=== PATIENT | male | born 1955 | race Caucasian/White ===

== ENCOUNTER 2016-12-16 07:08 | Day surgery (SDC) | payer OTHER ==
[~2016-12-16] VITALS: Ht 175.3 cm; Wt 79.0 kg
[2016-12-16] VITALS (12 sets, daily range): BP systolic 96–165; BP diastolic 65–83; PULSE 72–100; RESP 16–27; Ht 175.3 cm; Wt 79.0 kg
[~2016-12-16 07:08] MED LIST: AMLO2.5T2 PO; ATOR20TA38 PO
[2016-12-16] MEDS ORDERED: POLYMYXIN/BACITRACIN 1L IRRIG IRR ONE (08:00)
[2016-12-16] MEDS ORDERED: SOD CHLORIDE 0.9% 1,000 ML IV SCH (08:00)
[2016-12-16] MEDS ORDERED: CEFAZOLIN 1 GM/50 ML (PMX) 50 ML IVPB ONE ×2 (08:00→09:00)
[2016-12-16] MEDS ORDERED: HEPARIN 1000 UNITS/ML 10 ML INJ ONE (08:33)
[2016-12-16] MEDS ORDERED: DIPHENHYDRAMINE 50 MG INJ ONE (09:00)
[2016-12-16] MEDS ORDERED: FENTAnyl 50 MCG/ML VIAL ONE (09:00)
[2016-12-16] MEDS ORDERED: LIDOCAINE 1%/EPI 1:200,000 10 ML VIAL INJ SCH (09:00)
[2016-12-16] MEDS ORDERED: MIDAZOLAM 1 MG/ML 2 ML INJ ONE (09:00)
--- NOTE | 2016-12-16 10:42 | RADRPT ---
PROCEDURE: FLUOROSCOPIC AND ULTRASONOGRAPHIC-GUIDED PLACEMENT OF RIGHT CHEST PORT. CLINICAL INDICATION: History of lymphoma. Venous access for chemotherapy. TECHNIQUE: INTRAPROCEDURE MEDICATIONS: PB antibiotic solution 40 cc applied topically. 1 gram Ancef intravenous ly, intra-op. IV Versed and Fentanyl per protocol. Informed consent was obtained. The procedure, risks, benefits, complications and alternatives were explained to the patient. Risks including bleeding, infection, and pneumothorax were explained. The patient understood and was willing to proceed. A procedural pause was performed. The patient's name, date of , and procedure to be performed w ere verified. The central line was inserted with all elements of maximal sterile barrier technique. All of the fol lowing were used: head covering, facial mask, sterile gown, sterile gloves, a large sterile sheet, h and hygiene, and 2% chlorhexidine for cutaneous antisepsis. The right neck and anterior/superior chest wall were prepped and draped in usual sterile fashion. Limited sonography of the right neck was then performed. Noted is a patent right internal jugular ve in. Following the local injection of 1% lidocaine, the right internal jugular vein was punctured under s onographic guidance with a 20-gauge needle through which a 0.018 inch floppy tip guidewire was advan brady into the superior vena cava with fluoroscopic guidance. The tract was dilated to 5 [place] and the wire was then replaced with a 0.035 in Amplatz guidewire. Serial dilatation was then performed and a 7 [place]alan peel away sheath was introduced. A site just inferior to the clavicle in the superior anterior right chest wall was localized. One pe rcent lidocaine was used as local anesthesia. A transverse 2.5 cm incision was made utilizing a 15 b lade scalpel. Utilizing blunt dissection a subcutaneous pocket was created inferior to the incision. The cavity was flushed with approximately 40 cc of PB antibiotic solution. The catheter was tunneled underneath the skin from the newly created pocket to the puncture site in the neck. The central line catheter was pulled through the tract. The catheter was then advanced thr ough the sheath until the tip was positioned in the right atrium. The peel-away sheath was removed. The catheter was flushed and clamped. The 6.6 [place]alan catheter was then connected to the Angiodynamics power port. The port was then placed into the pocket. Prior to closing the instrument and sponge count was verified and was correct. The subcutaneous tissue was closed with 3-0 Vicryl interrupted suture. The skin at the site of the pock et and in the neck was closed with 4-0 Vicryl suture in a running subcuticular technique. The port w as flushed with 1500 units of heparin in 1.5 cc utilizing a Lara needle. The needle was removed. A dressing was applied. The patient tolerated procedure well. COMPARISON: None. FINDINGS: Ultrasound images were recorded and stored in the patient's medical record. Final radiographic images demonstrate the tip of the catheter in the upper right atrium. A total of 0.2 minutes of fluoroscopy time was used. The ultrasound images demonstrate the needle entering th e internal jugular vein. IMPRESSION: 1. Successful ultrasonographic and fluoroscopic guided placement of right chest power port. RPTAT: QQ .Severino Francis MD, Date Time Electronically viewed and signed by .Severino Francis MD, MD on 12/16/2016 10:42 .R/
--- NOTE | 2016-12-16 10:48 | RADRPT ---
PROCEDURE: Ultrasound guidance for placement of needle in right internal jugular vein. CLINICAL INDICATION: Venous access. TECHNIQUE: Prior to the procedure, informed consent was obtained. Risks including bleeding, infection, and pneu mothorax were explained to the patient. The patient understood and was willing to proceed. A procedu ral pause was performed. The patient's name, date of , and procedure to be performed were verif ied. The central line was inserted with all elements of maximal sterile barrier technique. All of th e following were used: head covering, facial mask, sterile gown, sterile gloves, a large sterile she et, hand hygiene, and 2% chlorhexidine for cutaneous antisepsis. The right neck and anterior/super ior chest wall was prepped and draped in usual sterile fashion. Limited sonography of the right neck was then performed. Noted is a patent right internal jugular ve in. Ultrasound images were recorded and stored in the patient's medical record. Following the local injection of Xylocaine, the right internal jugular vein was punctured under sono graphic guidance with a 20-gauge needle through which a 0.018 inch floppy tip guidewire was advanced into the superior vena cava. The patient tolerated the procedure well. The remainder of the proce dure was performed and dictated under separate cover. COMPARISON: None. FINDINGS: The ultrasound images demonstrate a patent right internal jugular vein. The subsequent images demon strate the needle entering the right internal jugular vein. IMPRESSION: 1. Ultrasound guidance for a needle placement in right internal jugular vein. RPTAT: QQ .Seveirno Francis MD, Date Time Electronically viewed and signed by .Severino Francis MD, MD on 12/16/2016 10:48 .R/
== END 2016-12-16 12:45 | disposition home or self-care (01) ==
LOC: GIL 07:08 → SDS 07:08
PROVIDERS: ATTEND Internal Medicine Hematology & Oncology
DX: C82.35 Follicular lymphoma grade IIIa, lymph nodes of inguinal region and lower limb (principal); I10 Essential (primary) hypertension; E78.5 Hyperlipidemia, unspecified
CPT/HCPCS: 36561; 76942; C1788; J0690; J1200; J1644; J2250; J3010

== ENCOUNTER 2019-01-07 07:02 | Day surgery (SDC) | payer OTHER ==
[~2019-01-07] VITALS: Ht 167.6 cm; Wt 83.6 kg
[2019-01-07 08:18] VITALS: Ht 167.6 cm; Wt 83.6 kg
[2019-01-07 08:21] VITALS: BP 142/80; PULSE 78; RESP 16
[2019-01-07] MEDS ORDERED: SOD CHLORIDE 0.9% 1,000 ML IV SCH (08:30)
[2019-01-07] MEDS ORDERED: POLYMYXIN/BACITRACIN 1L IRRIG IRR ONE (08:30)
--- NOTE | 2019-01-07 08:40 | HPN ---
Date/Time of Note Date/Time of Note DATE: 01/07/19 TIME: 08:40 Interval H&P Admission Note Pt. seen H&P reviewed: No system changes BETHANY VASQUEZ MD Jan 07, 2019 08:40
[2019-01-07] MEDS ORDERED: LIDOCAINE 1% (MPF) 5 ML VIAL ONE (09:20)
[2019-01-07 10:33] VITALS: BP 132/82; PULSE 73; RESP 18
[2019-01-07] MEDS ORDERED: HYDROCODONE/APAP (5/325) TAB PO PRN (11:00)
== END 2019-01-07 11:15 | disposition home or self-care (01) ==
LOC: SDS 07:02
PROVIDERS: ATTEND Internal Medicine Hematology & Oncology
DX: K11.23 Chronic sialoadenitis (principal)
CPT/HCPCS: 76942; 88307; 88313; 88341; 88342